=== PATIENT | female | born 1990 | race Two or more races ===

== ENCOUNTER 2019-01-27 11:30 | Inpatient (IN) | payer OTHER ==
[~2019-01-27 11:30] MED LIST: CATAFLAM50 MG PO; CLARITIN10 MG PO; FLONASE16 GM NS
[2019-03-28] MEDS ORDERED: PRENATAL TABLE1 EACH (08:07)
== END 2019-04-01 18:58 | disposition home or self-care (01) | DRG 807 ==
LOC: LDR 03-28 06:54 → OB/GYN 03-28 06:54 → LDR 03-28 07:16 → OB/GYN 03-29 12:00
PROVIDERS: ADMIT Obstetrics & Gynecology
PROC: 10E0XZZ Delivery of Products of Conception, External Approach (ICD-10-PCS; principal; 2019-03-30)
PROC: 0W8NXZZ Division of Female Perineum, External Approach (ICD-10-PCS; 2019-03-30)
PROC: 4A0HXFZ Measurement of Products of Conception, Cardiac Rhythm, External Approach (ICD-10-PCS; 2019-03-30)
DX: O80 Encounter for full-term uncomplicated delivery (principal); Z37.0 Single live birth; Z3A.39 39 weeks gestation of pregnancy

== ENCOUNTER 2019-04-06 13:29 | Outpatient (CLI) | payer OTHER ==
[~2019-04-06 13:29] MED LIST changes: +PRENATAL TABLE1 EACH
== END 2019-04-06 14:37 | disposition left against medical advice (07) ==
LOC: OBS/DEL 13:29
DX: O14.95 Unspecified pre-eclampsia, complicating the puerperium (principal)

== ENCOUNTER 2019-04-07 09:15 | Outpatient (CLI) | payer OTHER | END 2019-04-07 14:00 | disposition home or self-care (01) | LOC: OBS/DEL 09:15 | DX: O14.95 Unspecified pre-eclampsia, complicating the puerperium (principal) ==